=== PATIENT | male | born 1980 | race American Indian/Alaskan Native ===

== ENCOUNTER 2018-07-04 08:51 | Emergency (ER) | payer SELFPAY ==
[2018-07-04] MEDS ORDERED: Sodium Chloride 0.9% 10 ML Syringe FLUSH PRN (10:48)
--- NOTE | 2018-07-04 10:51 | EDM.PDOC ---
ED HPI GENERAL MEDICAL PROBLEM - General Chief Complaint: Chest Pain Stated Complaint: CHEST PAIN Time Seen by Provider: 07/04/18 10:35 Source of Information: Reports: Patient History Limitations: Reports: No Limitations - History of Present Illness INITIAL COMMENTS - FREE TEXT/NARRATIVE: 38-year-old male presents for evaluation and treatment of chest pain. Upon interviewing him he identifies pain more in the epigastric area. He reports this started yesterday around 10 AM here he was not doing anything in particular at that time; was not exerting himself. Pressing in the area seems to make the pain worse. He describes the pain as a sharp stabbing pain that comes and goes lasting maybe a few seconds to a minute. His last episode was about 1 minute prior to me entering the room. He denies any associated shortness of breath, nausea, vomiting, diaphoresis or any pain into his back. He has not taken any medications for the pain. Past medical history of hypertension. He states that he smokes "once in a while ". No previous surgeries to his abdomen. Last intake was around 6 AM this morning. - Related Data Allergies Allergy/AdvReac Type Severity Reaction Status Date / Time No Known Allergies Allergy Verified 07/04/18 09:00 Home Meds: Home Meds . [No Known Home Meds] 07/04/18 [History] Past Medical History Cardiovascular History: Reports: Hypertension Social & Family History - Tobacco Use Smoking Status *Q: Current Some Day Smoker Years of Tobacco use: 15 Packs/Tins Daily: 0.1 - Caffeine Use Caffeine Use: Reports: Coffee - Recreational Drug Use Recreational Drug Use: No ED ROS GENERAL - Review of Systems Review Of Systems: See Below Constitutional: Denies: Fever, Chills, Diaphoresis Respiratory: Denies: Shortness of Breath, Cough Cardiovascular: Reports: Chest Pain (identifies pain in the epigastric area) GI/Abdominal: Reports: Abdominal Pain (epigastric). Denies: Nausea, Vomiting Musculoskeletal: Denies: Back Pain ED EXAM, GI/ABD - Physical Exam Exam: See Below Exam Limited By: No Limitations General Appearance: Alert, WD/WN, No Apparent Distress, Obese Throat/Mouth: Normal Inspection, Normal Voice, No Airway Compromise Respiratory/Chest: No Respiratory Distress, Lungs Clear, Normal Breath Sounds Cardiovascular: Normal Peripheral Pulses, Regular Rate, Rhythm, No Murmur GI/Abdominal Exam: Normal Bowel Sounds, Soft, Tender (epigastric), Other ( negative pearson's sign) Neurological: Alert, Oriented, Normal Cognition Psychiatric: Normal Affect, Normal Mood Skin Exam: Warm, Dry, Normal Color EKG INTERPRETATION EKG Date: 07/04/18 Time: 09:07 Rhythm: NSR Rate (Beats/Min): 83 [place]: Normal P-Wave: Present QRS: Normal ST-T: Normal QT: Normal EKG Interpretation Comments: NSR at 83 bpm. No atrial enlargement. J-point elevation in V2. No T wave inversion. No ischemic changes. No LAD/RAD. No LVH. No IVCD. QTc within normal limits with a QTc of 441. Reviewed by myself and Dr. Small. Course - Vital Signs Last Recorded V/S: Last Vital Signs Temp 98 F 07/04/18 08:58 Pulse 78 07/04/18 08:58 Resp 18 07/04/18 08:58 BP 131/93 H 07/04/18 08:58 Pulse Ox 99 07/04/18 08:58 - Orders/Labs/Meds Orders: Active Orders 24 hr Category Date Time Status Cardiac Monitoring [RC] . DIRECTED Care 07/04/18 10:47 Active EKG 12 Lead [EKG Documentation Completion] [RC] STAT Care 07/04/18 09:07 Active Peripheral IV Care [RC] . DIRECTED Care 07/04/18 10:49 Active Peripheral IV Insertion Adult [OM.PC] Routine Oth 07/04/18 10:48 Ordered EKG 12 Lead [EK] Stat Ther 07/04/18 10:47 Ordered Labs: Laboratory Tests 07/04/18 07/04/18 07/04/18 Range/Units 11:15 11:15 11:15 WBC 6.56 (4.23-9.07) K/mm3 RBC 4.94 (4.63-6.08) M/mm3 Hgb 14.4 (13.7-17.5) gm/L Hct 43.3 (40.1-51.0) % MCV 87.7 (79.0-92.2) fl MCH 29.1 (25.7-32.2) pg MCHC 33.3 (32.2-35.5) g/dl RDW Std Deviation 43.5 (35.1-43.9) fL Plt Count 256 (163-337) K/mm3 MPV 8.4 L (9.4-12.3) fl Neutrophils % (Manual) 69 H (40-60) % Band Neutrophils % 1 (0-10) % Lymphocytes % (Manual) 27 (20-40) % Atypical Lymphs % 0 % Monocytes % (Manual) 2 (2-10) % Eosinophils % (Manual) 0 L (0.8-7.0) % Basophils % (Manual) 1 (0.2-1.2) Platelet Estimate Adequate RBC Morph Comment Normal PT 10.4 (9.5-12.1) SECONDS INR 0.95 APTT 32 H (24-31) SECONDS Sodium 142 (136-145) mEq/L Potassium 3.9 (3.5-5.1) mEq/L Chloride 104 (98-107) mEq/L Carbon Dioxide 29 (21-32) mEq/L Anion Gap 12.9 (5-15) BUN 12 (7-18) mg/dL Creatinine 0.8 (0.7-1.3) mg/dL Est Cr Clr Drug Dosing 121.13 mL/min Estimated GFR (MDRD) > 60 (>60) mL/min BUN/Creatinine Ratio 15.0 (14-18) Glucose 110 H (74-106) mg/dL Calcium 8.1 L (8.5-10.1) mg/dL Magnesium 2.2 (1.8-2.4) mg/dl Total Bilirubin 0.4 (0.2-1.0) mg/dL AST 25 (15-37) U/L ALT 35 (16-63) U/L Alkaline Phosphatase 69 (46-116) U/L CK-MB (CK-2) 2.6 (0-3.6) ng/ml Troponin I 0.057 H* (0.00-0.056) ng/mL C-Reactive Protein 0.3 (<1.0) mg/dL Total Protein 7.6 (6.4-8.2) g/dl Albumin 3.7 (3.4-5.0) g/dl Globulin 3.9 gm/dL Albumin/Globulin Ratio 1.0 (1-2) Lipase 79 (73-393) U/L Meds: Medications Discontinued Medications Generic Name Dose Route Start Last Admin Trade Name Freq PRN Reason Stop Dose Admin Aspirin 324 mg 07/04/18 11:49 Aspirin PO 07/04/18 11:50 ONETIME ONE Sodium Chloride 10 ml 07/04/18 10:48 Saline Flush FLUSH ASDIRECTED PRN Keep Vein Open - Radiology Interpretation Free Text/Narrative:: Chest: Two views of the chest were obtained. Comparison: No prior chest x-ray. Heart size and mediastinum are within normal limits. Minimal pleural thickening is seen along the lateral chest on both sides which is believed to be incidental. Slight left basilar atelectasis is seen. Lungs otherwise are clear. Bony structures appear within normal limits. Impression: 1. Incidental findings as noted above. Nothing acute is seen. - Re-Assessments/Exams Free Text/Narrative Re-Assessment/Exam: 07/04/18 12:26 I have reviewed the labs, EKG and imaging with the patient. Informed that his troponin is slightly elevated at 0.057. At this point I'm recommending at least repeat the troponin. I'm recommending discussing his case with our hospitalist to continue to monitor the troponin can possibly get a stress test or possibly transfer to [place]. He does not want to stay in the hospital at all. He wants to leave at this time. He states that he is hungry and does not want to stay. He does not feel that this is heart is causing his pain. He denies any pain since entering the ED and wants to leave at this time. I did inform them with his troponin being elevated and no obvious cause such as an elevated renal function or obvious heart failure, I cannot say this is not coming from his heart and I would recommend further observation at this point. Patient is adamant he wants to go home due to cost concerns. He does not feels is coming from his heart. I will have him sign out AGAINST MEDICAL ADVICE. He is informed of the risks that if this is coming from his heart and is a warning sign he could possibly from this. He would like to go home at this time. Departure - Departure Time of Disposition: 12:30 Disposition: Against Medical Advice 07 Condition: Undetermined Clinical Impression: Epigastric pain, Elevated troponin - Discharge Information *PRESCRIPTION DRUG MONITORING PROGRAM REVIEWED*: No *COPY OF PRESCRIPTION DRUG MONITORING REPORT IN PATIENT ASH: No Referrals: PCP,None [Primary Care Provider] - Forms: ED Department Discharge Additional Instructions: Recommended continuing monitoring with repeat trop and admission for a stress test. Patient refuses and opts to leave AMA. - My Orders Last 24 Hours: My Active Orders 07/04/18 10:47 Cardiac Monitoring [RC] . DIRECTED EKG 12 Lead [EK] Stat 07/04/18 10:48 Peripheral IV Insertion Adult [OM.PC] Routine 07/04/18 10:49 Peripheral IV Care [RC] . DIRECTED - Assessment/Plan Last 24 Hours: My Active Orders 07/04/18 10:47 Cardiac Monitoring [RC] . DIRECTED EKG 12 Lead [EK] Stat 07/04/18 10:48 Peripheral IV Insertion Adult [OM.PC] Routine 07/04/18 10:49 Peripheral IV Care [RC] . DIRECTED
--- NOTE | 2018-07-04 11:46 | CR ---
Chest: Two views of the chest were obtained. Comparison: No prior chest x-ray. Heart size and mediastinum are within normal limits. Minimal pleural thickening is seen along the lateral chest on both sides which is believed to be incidental. Slight left basilar atelectasis is seen. Lungs otherwise are clear. Bony structures appear within normal limits. Impression: 1. Incidental findings as noted above. Nothing acute is seen. Diagnostic code #2
[2018-07-04] MEDS ORDERED: Aspirin 81 MG Tab.Chew PO ONE (11:49)
== END 2018-07-04 12:29 | disposition left against medical advice (07) ==
LOC: JD.ED 08:51
DX: R10.13 Epigastric pain (principal); R79.89 Other specified abnormal findings of blood chemistry; I10 Essential (primary) hypertension; F17.210 Nicotine dependence, cigarettes, uncomplicated
CPT/HCPCS: 36415; 71046; 71046-26; 80053; 82553; 83690; 83735; 84484; 85007; 85027; 85610; 85730; 86140; 93005; 93010; 99283; 99285-25

== ENCOUNTER 2018-07-05 09:27 | Emergency (ER) | payer SELFPAY ==
[2018-07-05] MEDS ORDERED: Aspirin 81 MG Tab.Chew PO ONE (09:45)
[2018-07-05] MEDS ORDERED: Sodium Chloride 0.9% 10 ML Syringe FLUSH PRN ×2 (09:45→10:21)
[2018-07-05] MEDS ORDERED: Iopamidol 755 Mg/ML 100 ML Bottle IVPUSH ONE (10:21)
[2018-07-05] MEDS ORDERED: Sodium Chloride 0.9% 100 ML IV SCH (10:30)
--- NOTE | 2018-07-05 11:05 | CT ---
CT chest Technique: Multiple axial sections through the chest were obtained. Intravenous contrast was utilized. Study has been performed as a pulmonary angiogram protocol. Findings: Pulmonary arteries are not optimally opacified. No discrete filling defects are otherwise seen to indicate pulmonary embolism. Smaller distal subsegmental pulmonary emboli could be missed. Mediastinum and hilar regions show no adenopathy. No pericardial thickening is seen. Small portion of the visualized upper abdominal structures are within normal limits. No axillary adenopathy is identified. Lungs are clear. No acute parenchymal change is seen. Slight increased extrapleural fat is noted along the lateral chest velasquez on both sides. Bone window setting show no acute osseous abnormality. Impression: 1. Less than optimal opacification of the pulmonary arteries. No pulmonary embolism is seen but smaller distal subsegmental pulmonary emboli could be missed. 2. Nothing acute is appreciated on CT study of the chest. Diagnostic code #2
[2018-07-05] MEDS ORDERED: Heparin Sodium 5,000 Units/ML Vial IVPUSH ONE (12:03)
--- NOTE | 2018-07-05 12:03 | EDM.PDOC ---
ED HPI GENERAL MEDICAL PROBLEM - General Chief Complaint: Chest Pain Stated Complaint: HIGH BLOOD PRESSURE/CHEST PAIN Time Seen by Provider: 07/05/18 09:40 Source of Information: Reports: Patient History Limitations: Reports: No Limitations - History of Present Illness INITIAL COMMENTS - FREE TEXT/NARRATIVE: The patient presents with chest pain. This started yesterday. The pain is in the mid chest. He does not have any shortness of breath but the pain is made worse by deep breathing. He was seen here yesterday. His EKG was normal along with his CXR. His troponin was elevated at 0.057. Sia chaudhary PA was going to admit him or send him to [place] but he did not want to stay. He continued to have intermittent chest pain through the night. He came back today. He still has no shortness of breath. I gave him an aspirin and the pain went away. He does have a history of HTN. He quit taking the meds awhile back. He smokes sometimes. He has no history of diabetes or hypercholesterolemia. He has a family history of diabetes but no heart disease as far as he knows. He does not have much contact with his family. Onset: Gradual Duration: Day(s): (2) Location: Reports: Chest Quality: Reports: Sharp Severity: Moderate Improves with: Reports: None Worsens with: Reports: None Associated Symptoms: Reports: Chest Pain. Denies: Cough, Fever/Chills, Headaches, Nausea/Vomiting, Shortness of Breath Treatments BREAD DUMPER: Reports: Other (see below) Other Treatments BREAD DUMPER: calcium chloride Mid-Sternal Chest Pain Score (Numeric/FACES): 3 - Related Data Allergies Allergy/AdvReac Type Severity Reaction Status Date / Time No Known Allergies Allergy Verified 07/05/18 09:37 Home Meds: Home Meds . [No Known Home Meds] 07/04/18 [History] Past Medical History Cardiovascular History: Reports: Hypertension Musculoskeletal History: Reports: Other (See Below) Other Musculoskeletal History: dislocated arm - Past Surgical History Musculoskeletal Surgical History: Reports: None Social & Family History - Tobacco Use Smoking Status *Q: Light Tobacco Smoker Years of Tobacco use: 1 Packs/Tins Daily: 0.1 Second Hand Smoke Exposure: No - Caffeine Use Caffeine Use: Reports: Coffee - Alcohol Use Days Per Week of Alcohol Use: 7 Number of Drinks Per Day: 2 Total Drinks Per Week: 14 Date of Last Drink: 07/05/18 - Recreational Drug Use Recreational Drug Use: No ED ROS GENERAL - Review of Systems Review Of Systems: See Below Constitutional: Reports: No Symptoms HEENT: Reports: No Symptoms Respiratory: Reports: No Symptoms Cardiovascular: Reports: Chest Pain Endocrine: Reports: No Symptoms GI/Abdominal: Reports: No Symptoms : Reports: No Symptoms Musculoskeletal: Reports: No Symptoms ED EXAM, GENERAL - Physical Exam Exam: See Below Exam Limited By: No Limitations General Appearance: Alert, No Apparent Distress Ears: Normal External Exam Nose: Normal Inspection Head: Atraumatic, Normocephalic Neck: Normal Inspection Respiratory/Chest: No Respiratory Distress, Lungs Clear, Normal Breath Sounds Cardiovascular: Regular Rate, Rhythm, No Edema, No Murmur GI/Abdominal: Soft, Non-Tender, No Organomegaly, No Mass Back Exam: Normal Inspection Extremities: Normal Inspection Neurological: Alert, Oriented, No Motor/Sensory Deficits EKG INTERPRETATION EKG Date: 07/05/18 Time: 09:33 Rhythm: Other (sinus tachycardia) Rate (Beats/Min): 102 [place]: Normal P-Wave: Present QRS: Normal ST-T: Normal QT: Normal Course - Vital Signs Last Recorded V/S: Last Vital Signs Temp 98.6 F 07/05/18 09:31 Pulse 101 H 07/05/18 09:31 Resp 15 07/05/18 09:31 BP 153/107 H 07/05/18 09:31 Pulse Ox 94 L 07/05/18 09:31 - Orders/Labs/Meds Orders: Active Orders 24 hr Category Date Time Status Cardiac Monitoring [RC] . DIRECTED Care 07/05/18 09:45 Active EKG Documentation Completion [RC] STAT Care 07/05/18 09:45 Active Peripheral IV Care [RC] . DIRECTED Care 07/05/18 09:45 Active Sodium Chloride 0.9% [Normal Saline] 100 ml Med 07/05/18 10:30 Active IV ASDIRECTED Sodium Chloride 0.9% [Saline Flush] Med 07/05/18 09:45 Active 10 ml FLUSH ASDIRECTED PRN Sodium Chloride 0.9% [Saline Flush] Med 07/05/18 10:21 Active 10 ml FLUSH ONETIME PRN Peripheral IV Insertion Adult [OM.PC] Stat Oth 07/05/18 09:45 Ordered Medication Orders Sodium Chloride (Normal Saline) 100 mls @ 75 mls/hr IV ASDIRECTED FELA Last Admin: 07/05/18 10:29 Dose: 75 mls/hr Sodium Chloride (Saline Flush) 10 ml FLUSH ASDIRECTED PRN PRN Reason: Keep Vein Open Last Admin: 07/05/18 09:50 Dose: 10 ml Sodium Chloride (Saline Flush) 10 ml FLUSH ONETIME PRN PRN Reason: IV FLUSH Last Admin: 07/05/18 10:29 Dose: 10 ml Labs: Laboratory Tests 07/05/18 07/05/18 07/05/18 Range/Units 09:38 09:38 09:38 WBC 5.25 (4.23-9.07) K/mm3 RBC 5.12 (4.63-6.08) M/mm3 Hgb 15.0 (13.7-17.5) gm/L Hct 44.3 (40.1-51.0) % MCV 86.5 (79.0-92.2) fl MCH 29.3 (25.7-32.2) pg MCHC 33.9 (32.2-35.5) g/dl RDW Std Deviation 41.9 (35.1-43.9) fL Plt Count 268 (163-337) K/mm3 MPV 8.4 L (9.4-12.3) fl Neut % (Auto) 58.5 (34.0-67.9) % Lymph % (Auto) 30.9 (21.8-53.1) % [place] % (Auto) 9.1 (5.3-12.2) % Eos % (Auto) 1.1 (0.8-7.0) Baso % (Auto) 0.4 (0.1-1.2) % Neut # (Auto) 3.07 (1.78-5.38) K/mm3 Lymph # (Auto) 1.62 (1.32-3.57) K/mm3 [place] # (Auto) 0.48 (0.30-0.82) K/mm3 Eos # (Auto) 0.06 (0.04-0.54) K/mm3 Baso # (Auto) 0.02 (0.01-0.08) K/mm3 D-Dimer, Quantitative 0.53 H (0.19-0.50) mg/L Sodium 141 (136-145) mEq/L Potassium 3.5 (3.5-5.1) mEq/L Chloride 103 (98-107) mEq/L Carbon Dioxide 26 (21-32) mEq/L Anion Gap 15.5 H (5-15) BUN 9 (7-18) mg/dL Creatinine 0.8 (0.7-1.3) mg/dL Est Cr Clr Drug Dosing 121.13 mL/min Estimated GFR (MDRD) > 60 (>60) mL/min BUN/Creatinine Ratio 11.3 L (14-18) Glucose 112 H (74-106) mg/dL Calcium 8.6 (8.5-10.1) mg/dL Total Bilirubin 0.4 (0.2-1.0) mg/dL AST 27 (15-37) U/L ALT 31 (16-63) U/L Alkaline Phosphatase 84 (46-116) U/L Troponin I 0.073 H* (0.00-0.056) ng/mL Total Protein 8.1 (6.4-8.2) g/dl Albumin 3.9 (3.4-5.0) g/dl Globulin 4.2 gm/dL Albumin/Globulin Ratio 0.9 L (1-2) Meds: Medications Generic Name Dose Route Start Last Admin Trade Name Freq PRN Reason Stop Dose Admin Sodium Chloride 100 mls @ 75 mls/hr 07/05/18 10:30 07/05/18 10:29 Normal Saline IV 75 mls/hr ASDIRECTED FELA Administration Sodium Chloride 10 ml 07/05/18 09:45 07/05/18 09:50 Saline Flush FLUSH 10 ml ASDIRECTED PRN Administration Keep Vein Open Sodium Chloride 10 ml 07/05/18 10:21 07/05/18 10:29 Saline Flush FLUSH 10 ml ONETIME PRN Administration IV FLUSH Discontinued Medications Generic Name Dose Route Start Last Admin Trade Name Freq PRN Reason Stop Dose Admin Aspirin 324 mg 07/05/18 09:45 07/05/18 09:50 Aspirin PO 07/05/18 09:46 324 mg ONETIME ONE Administration Iopamidol 100 ml 07/05/18 10:21 07/05/18 10:29 Isovue-370 (76%) IVPUSH 07/05/18 10:22 100 ml ONETIME ONE Administration - Re-Assessments/Exams Free Text/Narrative Re-Assessment/Exam: 07/05/18 12:05 I ordered an IV saline lock, EKG, aspirin, and labs. His EKG shows a sinus tachycardia with no acute changes. His CBC and CMP look good. His troponin is elevated again and increases to 0.073. His D-dimer was also elevated so I ordered a CT angio of his chest. The CT shows no PE. I am not having a reason other then a nonSTEMI for his chest pain. I feel he needs to go to [place] and see cardiology. I called [facility] in [place] and I talked with the hospitalist Dr Hernandez and she agreed to the transfer. I will give the patient a heparin bolus and drip. Departure - Departure Time of Disposition: 12:10 Disposition: DC/Tfer to [facility] 02 Reason for Transfer *Q: Other Condition: Poor Clinical Impression: Non-STEMI (non-ST elevated myocardial infarction) Referrals: PCP,None [Primary Care Provider] - - My Orders Last 24 Hours: My Active Orders 07/05/18 09:45 Cardiac Monitoring [RC] . DIRECTED EKG Documentation Completion [RC] STAT Peripheral IV Care [RC] . DIRECTED Sodium Chloride 0.9% [Saline Flush] 10 ml FLUSH ASDIRECTED PRN Peripheral IV Insertion Adult [OM.PC] Stat 07/05/18 10:21 Sodium Chloride 0.9% [Saline Flush] 10 ml FLUSH ONETIME PRN 07/05/18 10:30 Sodium Chloride 0.9% [Normal Saline] 100 ml IV ASDIRECTED - Assessment/Plan Last 24 Hours: My Active Orders 07/05/18 09:45 Cardiac Monitoring [RC] . DIRECTED EKG Documentation Completion [RC] STAT Peripheral IV Care [RC] . DIRECTED Sodium Chloride 0.9% [Saline Flush] 10 ml FLUSH ASDIRECTED PRN Peripheral IV Insertion Adult [OM.PC] Stat 07/05/18 10:21 Sodium Chloride 0.9% [Saline Flush] 10 ml FLUSH ONETIME PRN 07/05/18 10:30 Sodium Chloride 0.9% [Normal Saline] 100 ml IV ASDIRECTED
[2018-07-05] MEDS ORDERED: Heparin Sodium/D5W 25,000 UNITS/500 ML BAG IV SCH (12:15)
== END 2018-07-05 12:33 ==
LOC: JD.ED 09:27
DX: I21.4 Non-ST elevation (NSTEMI) myocardial infarction (principal); F17.210 Nicotine dependence, cigarettes, uncomplicated; I10 Essential (primary) hypertension
CPT/HCPCS: 36415; 71275; 80053; 84484; 85025; 85379; 93005; 96365; 96376; 99285; A9270; J1644; J7030; Q9967; 93010; 99284